=== PATIENT | female | born 1985 | race Caucasian/White ===

== ENCOUNTER → 2017-09-19 19:45 | Observation (INO) ==
[2017-09-19 18:34] LABS: Bilirubin,Urine Negative (Negative); Blood,Urine Negative (Negative); Clarity,Urine Cloudy (Clear); Color,Urine Yellow (Yellow); Glucose,Urine (UA) Normal (Normal); Ketones,Urine 15 mg/dL (Negative); Leukocyte Esterase,Urine Moderate (Negative); Nitrite,Urine Negative (Negative); Protein,Urine Negative (Neg-Trace); Specific Gravity,Urine 1.016 (1.010-1.025); Urobilinogen,Urine Normal (Normal)
[2017-09-19 18:37] LABS: Bacteria,Urine Few per hpf (None-Few); Hyaline Casts,Urine None Seen per lpf (None-Few); Squamous Epithelial Cell,Urine Many per lpf (None-Few); WBC,Urine 15-30 per hpf (0-3)
[2017-09-19 18:56] LABS: Mucus,Urine Few (Few); Sperm,Urine Present
--- NOTE | 2017-09-19 19:07 | OB/GYN Progress Note ---
Date of Encounter: 09/19/17 Time of Encounter: 19:13 - Assessment and Plan (1) Pain in symphysis pubis during Current Visit: Yes Status: Acute Reactive NST Occasonal contraction per monitor Urinalysis likely contaminated Discharge home with labor precautions and kick counts One time dose of Flexeril 5 mg po given Belly Band for abdominal support May use heat or cold for pain relief Follow up with Dr. Ruiz in morning for Physical Therapy consult (2) 34 weeks gestation of Current Visit: Yes Status: Acute Subjective - Subjective Principal diagnosis: Difficulty walking Interval history: at 34 weeks 4 days presents to triage per with reports difficulty walking and pelvic pain when ambulating. States has walked "at least 2 miles" today at school and has walked up several flights of stairs. Denies vaginal bleeding, leaking fluid and contractions. Denies dysuria and urinary frequency. States baby moving well. Objective - Vital Signs Vital Signs: Intake and Output 09/19/17 09/19/17 09/19/17 07:59 15:59 23:59 Other: Weight 85.8 kg Patient Weight 09/19/17 23:59 Weight 85.8 kg - Exam FHR: category 1 FHR comments: 140 Auscultation: bilateral: normal Abdomen: Present: soft, gravid Uterus: Present: normal Cervical dilation: fingertip Cervix effacement: thick station: -3 Comments: posterior and soft - Labs Labs: Abnormal lab results Urine Clarity Cloudy (Clear) A 09/19/17 18:10 Urine Ketones 15 mg/dL (Negative) H 09/19/17 18:10 Ur Leukocyte Esterase Moderate (Negative) H 09/19/17 18:10 Urine Microscopic WBC 15-30 per hpf (0-3) H 09/19/17 18:10 Ur Squamous Epith Cells Many per lpf (None-Few) H 09/19/17 18:10 Ur Culture Indicated? NO. (NO) A 09/19/17 18:10
== END | disposition home or self-care (01) ==
LOC: 1NENULAB
PROVIDERS: ADMIT Obstetrics & Gynecology; ATTEND Obstetrics & Gynecology

== ENCOUNTER 2017-10-11 05:51 | Inpatient (IN) ==
[2017-10-11] MEDS ORDERED: Naloxone 0.4 MG/ML INJ IVP PRN (05:55)
[2017-10-11] MEDS ORDERED: Famotidine 20 MG/2 ML VIAL IVP PRN (05:55)
[2017-10-11] MEDS ORDERED: Metoclopramide 10 MG/2 ML VIAL IVP PRN ×2 (05:55→11:33)
[2017-10-11] MEDS ORDERED: Ringers Solution, Lactated 1,000 ML IVC ONE (05:57)
[2017-10-11] MEDS ORDERED: Ringers Solution, Lactated 1,000 ML IVC SCH (06:00)
[2017-10-11 06:47] LABS: Basophils % 0.2 %; Eosinophils # 0.1 K/mcL (0.0-0.6); Eosinophils % 1.1 %; Hematocrit 29.6 % (35.3-44.9); Immature Granulocytes % 1.4 % (0-4); Lymphocytes # 1.8 K/mcL (0.6-4.6); Lymphocytes % 19.7 %; Mean Corpuscular HGB Conc 33.8 g/dL (31.6-35.5); Mean Corpuscular Hemoglobin 30.1 pg (28.0-33.3); Mean Corpuscular Volume 89.2 fL (83.0-100.0); Mean Platelet Volume 14.1 fL (9.4-12.4); Monocytes % 11.2 %; Neutrophils # 5.9 K/mcL (1.6-8.9); Platelet Count 84 K/mcL (140-400); Red Blood Count 3.32 M/mcL (3.82-4.97); Red Cell Distribution Width 13.4 % (11.5-14.5); Segmented Neutrophils % 66.4 %
[2017-10-11 06:57] LABS: Amphetamine Screen,Urine Negative ng/mL (Cutoff=1000); Barbiturate Screen,Urine Negative ng/mL (Cutoff=200); Benzodiazepines Screen,Urine Negative ng/mL (Cutoff=200); Cannabinoid Screen,Urine Negative ng/mL (Cutoff = 50); Cocaine Screen,Urine Negative ng/mL (Cutoff= 300); Opiate Screen,Urine Negative ng/mL (Cutoff=300); Phencyclidine Screen,Urine Negative ng/mL (Cutoff=25)
[2017-10-11] MEDS ORDERED: CeFAZolin Premix DUPLEX 2,000 MG/50 ML BAG IVPB ONE (07:22)
[2017-10-11] MEDS ORDERED: ROPIVACAINE HCL/PF 0.5% 30 ML VIAL ONE (07:31)
[2017-10-11] MEDS ORDERED: Tetracaine/PF 20 MG/2 ML AMPUL ONE (07:32)
[2017-10-11] MEDS ORDERED: Morphine Sulfate/PF 5mg/10mL Vial ONE (07:43)
[2017-10-11] MEDS ORDERED: *HR* FentaNYL (PF) 100 MCG/2 ML VIAL ONE (07:43)
[2017-10-11] MEDS ORDERED: EPHEDrine 50 MG/ML VIAL ONE (07:46)
[2017-10-11] MEDS ORDERED: MetroNIDAZOLE 500 MG/100 ML 500 MG/100 ML BAG IVPB ONE (07:47)
--- NOTE | 2017-10-11 07:51 | OB/GYN History & Physical ---
Date of Encounter: 10/11/17 Time of Encounter: 07:51 Assessment and Plan (1) 37 weeks gestation of Current visit: Yes Status: Acute Patient has multiple risk factors for which [facility] has recommended a repeat C- section at 37 weeks (2) Velamentous insertion of umbilical cord in third trimester Current visit: Yes Status: Acute (3) Liver and biliary tract disorders in , third trimester Current visit: Yes Status: Acute (4) Gestational thrombocytopenia without hemorrhage in third trimester Current visit: Yes Status: Acute Repeat CBC /postop (5) History of 2 sections Current visit: Yes Status: Acute Repeat today per [facility] recommendations (6) Tobacco use disorder affecting in third trimester, antepartum Current visit: Yes Status: Chronic Smoking cessation information has been given (7) Tobacco use disorder affecting in third trimester, antepartum Current visit: Yes Status: Acute (8) Vaginal discharge during in third trimester Current visit: Yes Status: Acute Vaginosis panel obtained preop History of Present Illness Chief complaint: RPT C/S HPI: Ms. Gonzalez is a 32 year old female 37w5d to L+D for a rpt c/s. She is having it performed at 37 weeks per [facility] recommendations due to elevated bile salts and a marginal cord insertion. Both of these have increased risk for poor outcome. Her labs are blood type A positive, she is rubella immune, varicella immune and her GBS is negative. She has been smoking during , has been using tobacco despite counseling and has a velamentous cord insertion. She has been receiving twice weekly NSTs. She is requesting a repeat . Originally she desired a tubal ligation but did not sign consent soon enough to have this accomplished at this earlier gestation. She has had all of her itching despite using Vistaril and Urisidol. The patient is also reporting an irritating vaginal discharge was started yesterday. Past Med Surg Social Fam HX - Past Medical History Source: patient, old records reviewed Medical history: no medical history Psychiatric history: depression - Past Surgical History Surgical History: appendectomy, , cholecystectomy, other (Breast augmentation and diagnostic laparoscopy) - Social History Smoking Status: Current every day smoker Smokeless Tobacco Status: No Alcohol use: none Drug use: none - Family History Mother Living Status: Still Living Hx Family Cardiac Disorders: No Hx Family Respiratory Disorders: No Hx Family Cancer: No Hx Family GI Disorders: No Hx Family Genitourinary Disorders: No Hx Family Endocrine Disorder: No Hx Family Musculoskeletal Disorders: No Hx Family Neuromuscular Disorders: No Hx Family Neurologic Disorders: No Hx Family HEENT Disorders: No Hx Family Autoimmune Disorders: No Hx Family Reproductive Disorders: No Hx Family Psychosocial Disorders: No Hx Family Medical Disorders: No Obstetrical History - Pregnancies : 3 Term: 2 Livin Medications and Allergies Ferrous Sulfate 325 mg PO DAILY 09/19/17 [History] HydrOXYzine Pamoate [Vistaril] 50 mg PO Q6HR PRN 09/19/17 [History] Vit #108/Iron/FA [ One Tablet] 1 each PO DAILY 09/19/17 [ History] Ursodiol 300 mg PO TID 09/19/17 [History] 3 Allergy/AdvReac Type Severity Reaction Status Date / Time No Known Allergies Allergy Verified 09/19/17 17:25 Review of System OB All systems PM: reviewed and no additional remarkable complaints except as stated - Constitutional Constitutional ROS IM: fatigue, weight gain - Genitourinary Genitourinary: vaginal discharge (Vaginosis panel obtained today) - Integumentary Integumentary: other (itching) Exam - Vital Signs Vital signs: Initial Vital Signs Temp Pulse Resp BP 98.3 F 64 15 131/81 10/11/17 06:12 10/11/17 06:12 10/11/17 06:12 10/11/17 06:12 - Constitutional Constitutional: well developed, well nourished, no acute distress, average body habitus, other (Gravid) - HEENT HEENT: Normocephaly, Mucus Membranes Moist - Neck Neck exam: normal inspection, supple - Lungs Respiratory exam: CTAB - Cardiovascular Cardiovascular exam: RRR - Breasts Breast: bilateral: normal (Gravid) - Abdomen Abdomen: Present: bowel sounds normal, gravid, non tender - Extremities Extremities exam: normal inspection, warm Deep Tendon Reflex Grade: 3+ Normal But Brisk - Vulva Vulva: bilateral: normal - Vagina Vagina: Present: normal moisture (Vaginosis panel obtained) - Anus/Rectum Anus/Rectum: Present: normal perianal skin Results Result Diagrams: 10/11/17 06:30 Abnormal lab results RBC 3.32 M/mcL (3.82-4.97) L 10/11/17 06:30 Hgb 10.0 g/dL (11.5-15.4) L 10/11/17 06:30 Hct 29.6 % (35.3-44.9) L 10/11/17 06:30 Plt Count 84 K/mcL (140-400) L 10/11/17 06:30 MPV 14.1 fL (9.4-12.4) H 10/11/17 06:30 All other labs normal. - VTE Documentation of Mechanical Device: Intermittent pneumatic compression device
[2017-10-11] MEDS ORDERED: *HR* Oxytocin 10 UNIT/ML VIAL IM ONE (08:32)
[2017-10-11] MEDS ORDERED: Ringers Solution, Lactated 1,000 ML ONE (08:33)
--- NOTE | 2017-10-11 08:57 | Anesthesia Evaluation PreOp ---
Date of Encounter: 10/11/17 Time of Encounter: 07:32 - Past History Planned Operation: repeat X3 Cardiac History: Denies any Significant Hx Pulmonary History: Denies Any Significant HX CASHIER CREDIT History: Denies Any Significant HX Other Medical History: Other (anemia and induced cholestasis, with normal LFT's, reports no easy brusing or gums bleeding with brushing teeth) Anesthesia History: No Prior Anesthetic Complications, Past Anesthesia Alcohol Use: none Drug use: none Medications and Allergies Ferrous Sulfate 325 mg PO DAILY 09/19/17 [History] HydrOXYzine Pamoate [Vistaril] 50 mg PO Q6HR PRN 09/19/17 [History] Vit #108/Iron/FA [ One Tablet] 1 each PO DAILY 09/19/17 [ History] Ursodiol 300 mg PO TID 09/19/17 [History] 3 Allergy/AdvReac Type Severity Reaction Status Date / Time No Known Allergies Allergy Verified 09/19/17 17:25 Anesthesia Results - Labs 10/11/17 06:30 Anesthesia Exam - HEENT Pupil (Motor): Pupils equal Mallampati: I Teeth: Normal Oral Opening: Greater than 3 - CASHIER CREDIT LOC: Oriented CASHIER CREDIT Motor: Normal RUE, Normal LUE, Normal RLE, Normal LLE, Normal Face CASHIER CREDIT Sensory: Normal: RUE, LUE, RLE, LLE, Face - Cardiac Rhythm: Regular Murmur: None - Pulmonary Breath Sounds: bilateral Clear Respiratory Effort: Symmetrical Anesthesia Assess/Plan ASA Score: 2 Modified Joe Scale for Level of Consciousness: Cooperative, oriented, and tranquil Anesthetic Plan: General, Regional (extensive conversation concerning regional vs general.) Monitoring Plan: Standard Monitors Recovery Plan: PACU
[2017-10-11] MEDS ORDERED: *HR* HYDROmorphone (PF) 1 MG/ML SYRINGE IVP PRN (09:00)
[2017-10-11] MEDS ORDERED: *HR* Promethazine 25 MG/ML VIAL IVP PRN (09:00)
[2017-10-11] MEDS ORDERED: *HR* OxyCODONE Immed Rel 5 MG TABLET PO PRN (09:00)
[2017-10-11 09:21] LABS: Candida DNA Not Detected (Not Detect); Gardnerella DNA Not Detected (Not Detect); Trichomonas DNA Not Detected (Not Detect)
--- NOTE | 2017-10-11 09:28 | OB/GYN Procedure Note ---
Section - Date of procedure: 10/11/17 Preop diagnosis: desires repeat , other (Anemia, Gestational thrombocytopenia, Elevated bile salts and velamentous cord insertion) Post-op diagnosis: same Procedure: section, repeat low transverse Surgeon: Shelly Coelho Blood Loss: 400 Was there an mri assistant present: No Anesthesiologist: Rico Hooker Rug Setter [place]: Ricki Bran Anesthesia Type: Spinal section complications: none Disposition: L&D Recovery Room Specimens: Placenta, Cord segment - Infant (s) A Infant Delivery Date: 10/11/17 Infant Delivery Time: 08:30 Presentation: vertex Position: RAUL Route of delivery: other (The patient was taken to the operating room and given spinal anesthesia adequate for abdominal and pelvic surgery. The was prepped and draped in the usual sterile fashion. Timeout was completed. A Pfannenstiel skin incision was made through the previous scar. The subcutaneous tissue was sharply dissected down to the fascia. The fascia was incised in the midline and extended bilaterally with Carpio scissors.. 2 straight [place] clamps were placed on the inferior fascial edge and the fascia was bluntly and sharply dissected away from the rectus muscles. This was repeated superiorly. Peritoneum was bluntly entered. There were omental and uterine adhesions anteriorly which was lysed with a Bovie and hemostasis confirmed. Bladder blade was placed to protect the bladder. Vesicouterine peritoneum was incised and reflected inferiorly, and the bladder blade was replaced to protect the bladder. A transverse incision was then made on the uterus which is extended in a U fashion with bandage scissors. The amnion was bluntly entered with an Allis clamp. Clear fluid was seen. This was followed by the vertex delivery of a viable and vigorous male infant weighing 7#10 oz with Apgars of 8 at 1 minute and 9 at 5 minutes. Infant was placed on the maternal abdomen. The cord was clamped and cut after a delay. was handed to the nursery care team. The placenta was delivered spontaneous and intact. The uterine cavity was digitally palpated and wiped clean with a moist lap sponge. There were no placental remnants identified. A ring forcep was used to make sure the cervix was dilated and then this was discarded off the field. Clamps were placed on the uterine angles and the uterine incision was closed using 0 Vicryl suture in a running, locking fashion. Gloves were changed. A second imbricating layer completed the uterine closure with 0 Vicryl suture. The uterus was then examined and noted to be hemostatic. The pelvis was then irrigated with a copious amount of sterile water. Again, good hemostasis was identified. Tubes and ovaries were inspected and noted to be grossly normal. The peritoneal edges and rectus muscles were then examined and hemostasis achieved. The fascia was then closed using 0 PDS loop in a running, nonlocking fashion. Subcutaneous tissue was irrigated with sterile water, good hemostasis was achieved. The skin was then closed using a 4-0 Monocryl in a running subcuticular fashion. A dressing was placed. Estimated blood loss was 400cc. The Minor was noted to be draining clear yellow urine at the end of the procedure. All sponge and instrument counts are correct at the end of the procedure. The patient was taken to the recovery room in stable condition.) Gender: Male Viability: Viable Pounds: 8 Ounces: 5 Gram Weight: 3.77 kg at 1 minute: 8 at 5 minutes: 9 Placenta: uterine exploration, complete extraction Cord: nuchal cord (x2), 3 umbilical vessels, other (Velamentous cord insertion) , nuchal reduced - Narrative Narrative: The patient was taken to the operating room and given spinal anesthesia adequate for abdominal and pelvic surgery. The was prepped and draped in the usual sterile fashion. Timeout was completed. A Pfannenstiel skin incision was made through the previous scar. The subcutaneous tissue was sharply dissected down to the fascia. The fascia was incised in the midline and extended bilaterally with Carpio scissors.. 2 straight Nur[place] clamps were placed on the inferior fascial edge and the fascia was bluntly and sharply dissected away from the rectus muscles. This was repeated superiorly. Peritoneum was bluntly entered. There were omental and uterine adhesions anteriorly which was lysed with a Bovie and hemostasis confirmed. Bladder blade was placed to protect the bladder. Vesicouterine peritoneum was incised and reflected inferiorly, and the bladder blade was replaced to protect the bladder. A transverse incision was then made on the uterus which is extended in a U fashion with bandage scissors. There was prominent vascularity running through the amnion. The amnion was bluntly entered with an Allis clamp. Clear fluid was seen. This was followed by the vertex delivery of a viable and vigorous male weighing 8#4 oz with Apgars of 8 at 1 minute and 9 at 5 minutes. was placed on the maternal abdomen. The cord was clamped and cut after a delay. was handed to the nursery care team. The placenta was delivered manually intact, with the cord insertion over 10 cm from the edge of the placenta. The uterine cavity was digitally palpated and wiped clean with a moist lap sponge. There were no placental remnants identified. A ring forcep was used to make sure the cervix was dilated and then this was discarded off the field. Clamps were placed on the uterine angles and the uterine incision was closed using 0 Vicryl suture in a running, locking fashion. Gloves were changed. A second imbricating layer completed the uterine closure with 0 Vicryl suture. The uterus was then examined and hemostasis achieved with a [id number] using 0 Vicryl in the midline of the incision. The pelvis was then irrigated with a copious amount of sterile water. Good hemostasis was identified. Tubes and ovaries were inspected and noted to be grossly normal. The peritoneal edges and rectus muscles were then examined and hemostasis achieved. The fascia was then closed using 0 PDS loop in a running, nonlocking fashion. Subcutaneous tissue was irrigated with sterile water, good hemostasis was achieved. The skin was then closed using a 4-0 Monocryl in a running subcuticular fashion. A dressing was placed. Estimated blood loss was 400cc. The Minor was noted to be draining clear yellow urine at the end of the procedure. All sponge and instrument counts are correct at the end of the procedure. The patient was taken to the recovery room in stable condition.
--- NOTE | 2017-10-11 11:05 | Anesthesia Evaluation Post Op ---
Date of Encounter: 10/11/17 Time of Encounter: 11:04 - Vital Signs Vital Signs: vss - Lungs Lungs: Clear Ascult./Percussion - Airway Airway: Non-obstructed - Mental Status Mental Status: Alert & Oriented, Answers Appropriately - Pain Pain Scale used: [place] (Faces) - Nausea Vomiting Nausea Vomiting: Not Present - Hydration Hydration: Ice chips, Minor catheter - Discharge PostOp Status: Transfer Patient to floor
[2017-10-11] MEDS ORDERED: Ondansetron 4 MG/2 ML VIAL IVP PRN (11:33)
[2017-10-11] MEDS ORDERED: OXYCODONE Oral CONC 10 MG/0.5 ML ORAL.SYG SL PRN (11:33)
[2017-10-11] MEDS ORDERED: Simethicone 80 MG TAB.CHEW PO PRN (11:33)
[2017-10-11] MEDS ORDERED: Oxytocin 20 units/ LR 1000 mL 20 UNIT/1,000 ML BAG IVC SCH (11:33)
[2017-10-11] MEDS ORDERED: hydrOXYzine pamoate 25 MG CAPSULE PO PRN (11:33)
[2017-10-11] MEDS ORDERED: Sennosides 8.6 MG TABLET PO PRN (11:33)
[2017-10-11] MEDS: *HR* OxyCODONE/APAP 5/325 TABLET PO PRN ×2 (11:44→21:47)
[2017-10-11] MEDS ORDERED: *HR* Nalbuphine 10 MG/ML AMPUL IV PRN (13:31)
[2017-10-11] MEDS ORDERED: *HR* Nalbuphine 20 MG/ML AMPUL ONE (13:47)
[2017-10-11] MEDS: Ibuprofen 600 MG TABLET PO SCH (13:52)
[2017-10-12] MEDS: Ibuprofen 600 MG TABLET PO SCH ×4 (00:41→21:00)
[2017-10-12] MEDS: *HR* OxyCODONE/APAP 5/325 TABLET PO PRN ×4 (04:59→18:28)
[2017-10-12] MEDS: Azithromycin 250 MG TABLET PO SCH (08:31)
[2017-10-12] MEDS: Prenatal Vit/FA 1 EACH TABLET PO SCH (08:32)
[2017-10-12 14:44] LABS: Mean Corpuscular Volume 88.6 fL (83.0-100.0)
[2017-10-12 14:46] LABS: Basophils % 0.1 %; Eosinophils # 0.1 K/mcL (0.0-0.6); Eosinophils % 0.9 %; Hematocrit 27.3 % (35.3-44.9); Immature Platelets 19.8 % (1.1-6.1); Lymphocytes # 1.5 K/mcL (0.6-4.6); Mean Corpuscular Hemoglobin 29.2 pg (28.0-33.3); Mean Platelet Volume 13.9 fL (9.4-12.4); Monocytes # 0.6 K/mcL (0.0-1.3); Monocytes % 8.6 %; Neutrophils # 4.5 K/mcL (1.6-8.9); Red Blood Count 3.08 M/mcL (3.82-4.97); Red Cell Distribution Width 13.6 % (11.5-14.5); Segmented Neutrophils % 67.4 %
[2017-10-12 14:47] LABS: Platelet Count 94 K/mcL (140-400)
[2017-10-12 15:00] LABS: Alanine Aminotransferase 57 Units/L (7-52); Aspartate Amino Transferase 136 Units/L (13-39); BUN/Creatinine Ratio 18 (6-26); Blood Urea Nitrogen 14 mg/dL (6-20); Lactate Dehydrogenase 306 Units/L (140-271); Uric Acid 8.1 mg/dL (2.3-7.6); eGFR For African Americans > 60 (> 60); eGFR For Non-African Americans > 60 (> 60)
--- NOTE | 2017-10-12 16:02 | OB/GYN Progress Note ---
Date of Encounter: 10/12/17 Time of Encounter: 16:00 - Assessment and Plan (1) delivery delivered Current Visit: Yes Status: Acute Pt meeting post-op milestones. Anticipate discharge POD#2-3 (2) Gestational thrombocytopenia without hemorrhage in third trimester Current Visit: Yes Status: Acute (3) Liver and biliary tract disorders in , third trimester Current Visit: Yes Status: Acute Subjective - Subjective Interval history: Pt reports some incisional pain L>R. She also reports significant continued itching all over and some tightness in her calves bilaterally. No swelling or redness in LE. No other complaints. Patient reports: appetite normal, voiding normally, pain well controlled, ambulating normally [place]: doing well Objective - Vital Signs Latest vital signs: Vital Signs Temp Pulse Pulse Resp BP Pulse Ox 10/12/17 03:09 63 14 10/12/17 00:15 98.1 F 68 68 15 124/76 96 10/11/17 23:25 98.2 F 68 14 121/75 94 10/11/17 19:35 98.2 F 73 16 123/79 97 Intake and Output 10/12/17 10/12/17 10/12/17 07:59 15:59 23:59 Intake Total 1575 / 1575 360 / 360 Output Total 2400 / 2400 2049 Balance -825 / -825 -1690 / -1690 Intake: Oral 1100 / 1100 360 / 360 Other 475 / 475 Output: Urine 1800 / 1800 2049 Catheter 600 / 600 Other: Weight 86.183 kg Patient Weight 10/12/17 23:59 Weight 86.183 kg - Exam Lungs: bilateral: normal Chest: Normal S1, Normal S2 Extremities: Present: normal, tenderness (bilaterally). Absent: edema Abdomen: Present: soft Incision: Present: dressed (dressing dry and intact) Uterus: Present: firm - Labs Labs: Laboratory Results - last 24 hr 10/12/17 10/12/17 13:52 13:52 WBC 6.7 RBC 3.08 L Hgb 9.0 L Hct 27.3 L MCV 88.6 MCH 29.2 MCHC 33.0 RDW 13.6 Plt Count 94 L MPV 13.9 H Immature Gran % 1.0 Seg Neutrophils % 67.4 Lymphocytes % 22.0 Monocytes % 8.6 Eosinophils % 0.9 Basophils % 0.1 Neutrophils # 4.5 Lymphocytes # 1.5 Monocytes # 0.6 Eosinophils # 0.1 Basophils # 0.0 Immature Plt Fraction 19.8 H BUN 14 Creatinine 0.78 Est GFR ( Amer) > 60 Est GFR (Non-Af Amer) > 60 BUN/Creatinine Ratio 18 Uric Acid 8.1 H AST 136 H ALT 57 H Lactate Dehydrogenase 306 H
[2017-10-12] MEDS ORDERED: Lanolin 7 G OINT...G. TP PRN (20:54)
[2017-10-13] MEDS: *HR* OxyCODONE/APAP 5/325 TABLET PO PRN ×5 (00:04→18:02)
[2017-10-13] MEDS: Ibuprofen 600 MG TABLET PO SCH ×3 (03:30→15:44)
[2017-10-13 09:26] VITALS: BP 122/81
[2017-10-13] MEDS: Azithromycin 250 MG TABLET PO SCH (09:28)
[2017-10-13] MEDS: Prenatal Vit/FA 1 EACH TABLET PO SCH (09:29)
[2017-10-13 11:43] LABS: Alanine Aminotransferase 70 Units/L (7-52); Albumin 3.3 g/dL (3.5-5.7); Alkaline Phosphatase 108 Units/L (34-104); Aspartate Amino Transferase 157 Units/L (13-39); BUN/Creatinine Ratio 18 (6-26); Bilirubin,Total 0.1 mg/dL (0.3-1.0); Blood Urea Nitrogen 14 mg/dL (6-20); Calcium 8.8 mg/dL (8.6-10.3); Carbon Dioxide 23 mEq/L (23-29); Chloride 104 mEq/L (98-107); Globulin 3.4 g/dL (2.4-3.5); Glucose 89 mg/dL (70-105); Osmolality,Calculated 276 (280-300); Potassium 3.9 mEq/L (3.5-5.1); Sodium 133 mEq/L (136-145); Total Protein 6.7 g/dL (6.4-8.9); eGFR For African Americans > 60 (> 60); eGFR For Non-African Americans > 60 (> 60)
[2017-10-13 12:15] LABS: Basophils % 0.1 %; Eosinophils # 0.1 K/mcL (0.0-0.6); Eosinophils % 1.7 %; Hematocrit 27.6 % (35.3-44.9); Hemoglobin 9.3 g/dL (11.5-15.4); Lymphocytes # 1.4 K/mcL (0.6-4.6); Lymphocytes % 20.4 %; Mean Corpuscular HGB Conc 33.7 g/dL (31.6-35.5); Mean Corpuscular Hemoglobin 30.1 pg (28.0-33.3); Mean Corpuscular Volume 89.3 fL (83.0-100.0); Mean Platelet Volume 13.1 fL (9.4-12.4); Monocytes # 0.7 K/mcL (0.0-1.3); Monocytes % 9.5 %; Neutrophils # 4.8 K/mcL (1.6-8.9); Nucleated Red Blood Cells 0.3 /100 WBC (0); Platelet Count 104 K/mcL (140-400); Red Blood Count 3.09 M/mcL (3.82-4.97); Red Cell Distribution Width 13.6 % (11.5-14.5); Segmented Neutrophils % 67.3 %
[2017-10-13 19:17] LABS: Uric Acid 8.1 mg/dL (2.3-7.6)
--- NOTE | 2017-10-13 19:22 | Discharge Summary ---
Date of Encounter: 10/13/17 Time of Encounter: 19:19 - Discharge Diagnosis (1) Elevated liver enzymes Priority: Primary Status: Acute Comments: Pt continued to have rising liver enzymes today. Ordered GI consult. Pt states she is unable to stay in hospital for lab follow up and GI consult. Pt signing out AMA, so she can attend [employer] graduation tomorrow. Discussed with patient we do not know the cause of her liver enzymes and she risks further deterioration of health, liver failure and . Pt states she understands and has signed AMA papers. Pt to be seen in office on Tuesday and have follow up labs drawn. Pt states she may cancel appointment and just follow up with her own PCP. Discussed with patient it is her choice who follows up but I strongly recommend close follow up. (2) delivery delivered Priority: Primary Status: Acute Comments: POD#2, meeting PP milestones, bleeding minimal, pain well managed, tolerates po diet. (3) Gestational thrombocytopenia without hemorrhage in third trimester Priority: Primary Status: Acute (4) Liver and biliary tract disorders in , third trimester Priority: Primary Status: Acute - Discharge Medications Prescriptions: OxyCODONE/APAP 5/325 [Percocet 5/325 MG] 1 each PO Q4HR PRN 7 Days #20 tablet PRN Reason: Moderate pain 4-6 Ibuprofen [Motrin] 600 mg PO Q6HR #60 tablet Docusate [Colace] 100 mg PO BID #60 capsule Home Medications: Vit #108/Iron/FA [ One Tablet] 1 each PO DAILY 09/19/17 [ History] Calcium Carbonate [Tums] 1,000 mg PO Q4HR PRN tab.chew 10/13/17 [Rx] Docusate [Colace] 100 mg PO BID #60 capsule 10/13/17 [Rx] Ferrous Sulfate 325 mg PO BIDWM tablet 10/13/17 [Rx] Hydrocortisone 1% CREAM [Cortaid] 1 appl TP BID PRN bottle 10/13/17 [Rx] Ibuprofen [Motrin] 600 mg PO Q6HR #60 tablet 10/13/17 [Rx] Lanolin [Lansinoh] 1 appl TP TID PRN oint...g. 10/13/17 [Rx] OxyCODONE/APAP 5/325 [Percocet 5/325 MG] 1 each PO Q4HR PRN 7 Days #20 tablet [Rx] Vit/FA 1 each PO DAILY tablet 10/13/17 [Rx] Simethicone [Gas-X] 80 mg PO TID PRN tab.chew 10/13/17 [Rx] Allergies/Adverse Reactions: 3 Allergy/AdvReac Type Severity Reaction Status Date / Time No Known Allergies Allergy Verified 09/19/17 17:25 Data Procedures and tests throughout hospitalization: Laboratory Tests 10/11/17 10/11/17 10/11/17 06:30 06:30 07:45 WBC 8.9 RBC 3.32 L Hgb 10.0 L Hct 29.6 L MCV 89.2 MCH 30.1 MCHC 33.8 RDW 13.4 Plt Count 84 L MPV 14.1 H Immature Gran % 1.4 Seg Neutrophils % 66.4 Lymphocytes % 19.7 Monocytes % 11.2 Eosinophils % 1.1 Basophils % 0.2 Neutrophils # 5.9 Lymphocytes # 1.8 Monocytes # 1.0 Eosinophils # 0.1 Basophils # 0.0 Nucleated RBCs/100 WBC Immature Plt Fraction Sodium Potassium Chloride Carbon Dioxide BUN Creatinine Est GFR ( Amer) Est GFR (Non-Af Amer) BUN/Creatinine Ratio Glucose Calculated Osmolality Uric Acid Calcium Total Bilirubin AST ALT Alkaline Phosphatase Lactate Dehydrogenase Serum Total Protein Albumin Globulin Albumin/Globulin Ratio Urine Opiates Screen Negative Ur Barbiturates Screen Negative Ur Phencyclidine Scrn Negative Ur Amphetamines Screen Negative U Benzodiazepines Scrn Negative Urine Cocaine Screen Negative U Marijuana (THC) Screen Negative Bridgette species DNA Not Detected Gardnerella DNA Probe Not Detected Trichomonas DNA Probe Not Detected 10/12/17 10/12/17 10/13/17 13:52 13:52 08:43 WBC 6.7 RBC 3.08 L Hgb 9.0 L Hct 27.3 L MCV 88.6 MCH 29.2 MCHC 33.0 RDW 13.6 Plt Count 94 L MPV 13.9 H Immature Gran % 1.0 Seg Neutrophils % 67.4 Lymphocytes % 22.0 Monocytes % 8.6 Eosinophils % 0.9 Basophils % 0.1 Neutrophils # 4.5 Lymphocytes # 1.5 Monocytes # 0.6 Eosinophils # 0.1 Basophils # 0.0 Nucleated RBCs/100 WBC Immature Plt Fraction 19.8 H Sodium 133 L Potassium 3.9 Chloride 104 Carbon Dioxide 23 BUN 14 14 Creatinine 0.78 0.80 Est GFR ( Amer) > 60 > 60 Est GFR (Non-Af Amer) > 60 > 60 BUN/Creatinine Ratio 18 18 Glucose 89 Calculated Osmolality 276 L Uric Acid 8.1 H 8.1 H Calcium 8.8 Total Bilirubin 0.1 L AST 136 H 157 H ALT 57 H 70 H Alkaline Phosphatase 108 H Lactate Dehydrogenase 306 H Serum Total Protein 6.7 Albumin 3.3 L Globulin 3.4 Albumin/Globulin Ratio 1.0 L Urine Opiates Screen Ur Barbiturates Screen Ur Phencyclidine Scrn Ur Amphetamines Screen U Benzodiazepines Scrn Urine Cocaine Screen U Marijuana (THC) Screen Bridgette species DNA Gardnerella DNA Probe Trichomonas DNA Probe 10/13/17 09:11 WBC 7.1 RBC 3.09 L Hgb 9.3 L Hct 27.6 L MCV 89.3 MCH 30.1 MCHC 33.7 RDW 13.6 Plt Count 104 L MPV 13.1 H Immature Gran % 1.0 Seg Neutrophils % 67.3 Lymphocytes % 20.4 Monocytes % 9.5 Eosinophils % 1.7 Basophils % 0.1 Neutrophils # 4.8 Lymphocytes # 1.4 Monocytes # 0.7 Eosinophils # 0.1 Basophils # 0.0 Nucleated RBCs/100 WBC 0.3 H Immature Plt Fraction Sodium Potassium Chloride Carbon Dioxide BUN Creatinine Est GFR ( Amer) Est GFR (Non-Af Amer) BUN/Creatinine Ratio Glucose Calculated Osmolality Uric Acid Calcium Total Bilirubin AST ALT Alkaline Phosphatase Lactate Dehydrogenase Serum Total Protein Albumin Globulin Albumin/Globulin Ratio Urine Opiates Screen Ur Barbiturates Screen Ur Phencyclidine Scrn Ur Amphetamines Screen U Benzodiazepines Scrn Urine Cocaine Screen U Marijuana (THC) Screen Bridgette species DNA Gardnerella DNA Probe Trichomonas DNA Probe Labs on day of discharge: Labs from last 24 hours 10/13/17 10/13/17 09:11 08:43 WBC 7.1 RBC 3.09 L Hgb 9.3 L Hct 27.6 L MCV 89.3 MCH 30.1 MCHC 33.7 RDW 13.6 Plt Count 104 L MPV 13.1 H Immature Gran % 1.0 Seg Neutrophils % 67.3 Lymphocytes % 20.4 Monocytes % 9.5 Eosinophils % 1.7 Basophils % 0.1 Neutrophils # 4.8 Lymphocytes # 1.4 Monocytes # 0.7 Eosinophils # 0.1 Basophils # 0.0 Nucleated RBCs/100 WBC 0.3 H Sodium 133 L Potassium 3.9 Chloride 104 Carbon Dioxide 23 BUN 14 Creatinine 0.80 Est GFR ( Amer) > 60 Est GFR (Non-Af Amer) > 60 BUN/Creatinine Ratio 18 Glucose 89 Calculated Osmolality 276 L Uric Acid 8.1 H Calcium 8.8 Total Bilirubin 0.1 L AST 157 H ALT 70 H Alkaline Phosphatase 108 H Serum Total Protein 6.7 Albumin 3.3 L Globulin 3.4 Albumin/Globulin Ratio 1.0 L Date of admission: 10/11/17 05:51 Primary care physician: Tanya Del Rio Consults: 10/13/17 14:12 Consult to Gastroenterology [CONS] Routine Consulting Provider: [facility] Reason for Consult: elevated liver enzymes Time Notified: 14:16 Call Completed: Yes Discharging clinician: Bing Mcclendon Anticipated date of discharge: 10/13/17 - Patient Status Disposition: Left Against Medical Advice Condition: Good Functional capacity at discharge: independent ambulation Overall status at discharge: patient is not back to baseline - Discharge Instructions Follow Up With: Tanya Del Rio [Primary Care Provider] - Shelly Ruiz MD [Partnered Physician] - - Diet and Activity Activity: resume usual activities as tolerated Diet: regular diet Hospital Course Reason for admission: section Delivery: section Episiotomy: none Laceration: none Other procedures: none complications: other (elevating liver enzymes) Discharge diagnosis: IUP at term delivered baby: male Hospital course: Section - Date of procedure: 10/11/17 Preop diagnosis: desires repeat , other (Anemia, Gestational thrombocytopenia, Elevated bile salts and velamentous cord insertion) Post-op diagnosis: same Procedure: section, repeat low transverse Surgeon: Shelly Ruiz Quantitated Blood Loss: 400 Was there an molding line assistant present: No Anesthesiologist: Rico Hooker Testing Director: Ricki Bran Anesthesia Type: Spinal section complications: none Disposition: L&D Recovery Room Specimens: Placenta, Cord segment - (s) Infant A Delivery Date: 10/11/17 Infant Delivery Time: 08:30 Presentation: vertex Position: RAUL Route of delivery: other (The patient was taken to the operating room and given spinal anesthesia adequate for abdominal and pelvic surgery. The was prepped and draped in the usual sterile fashion. Timeout was completed. A Pfannenstiel skin incision was made through the previous scar. The subcutaneous tissue was sharply dissected down to the fascia. The fascia was incised in the midline and extended bilaterally with Carpio scissors.. 2 straight [place] clamps were placed on the inferior fascial edge and the fascia was bluntly and sharply dissected away from the rectus muscles. This was repeated superiorly. Peritoneum was bluntly entered. There were omental and uterine adhesions anteriorly which was lysed with a Bovie and hemostasis confirmed. Bladder blade was placed to protect the bladder. Vesicouterine peritoneum was incised and reflected inferiorly, and the bladder blade was replaced to protect the bladder. A transverse incision was then made on the uterus which is extended in a U fashion with bandage scissors. The amnion was bluntly entered with an Allis clamp. Clear fluid was seen. This was followed by the vertex delivery of a viable and vigorous male weighing 7#10 oz with Apgars of 8 at 1 minute and 9 at 5 minutes. was placed on the maternal abdomen. The cord was clamped and cut after a delay. was handed to the nursery care team. The placenta was delivered spontaneous and intact. The uterine cavity was digitally palpated and wiped clean with a moist lap sponge. There were no placental remnants identified. A ring forcep was used to make sure the cervix was dilated and then this was discarded off the field. Clamps were placed on the uterine angles and the uterine incision was closed using 0 Vicryl suture in a running, locking fashion. Gloves were changed. A second imbricating layer completed the uterine closure with 0 Vicryl suture. The uterus was then examined and noted to be hemostatic. The pelvis was then irrigated with a copious amount of sterile water. Again, good hemostasis was identified. Tubes and ovaries were inspected and noted to be grossly normal. The peritoneal edges and rectus muscles were then examined and hemostasis achieved. The fascia was then closed using 0 PDS loop in a running, nonlocking fashion. Subcutaneous tissue was irrigated with sterile water, good hemostasis was achieved. The skin was then closed using a 4-0 Monocryl in a running subcuticular fashion. A dressing was placed. Estimated blood loss was 400cc. The Minor was noted to be draining clear yellow urine at the end of the procedure. All sponge and instrument counts are correct at the end of the procedure. The patient was taken to the recovery room in stable condition.) Gender: Male Viability: Viable Pounds: 8 Ounces: 5 Gram Weight: 3.77 kg at 1 minute: 8 at 5 minutes: 9 Placenta: uterine exploration, complete extraction Cord: nuchal cord (x2), 3 umbilical vessels, other (Velamentous cord insertion) , nuchal reduced Stable in PP, but has rising liver enzymes and we ordered GI consult. Pt states she does not want to stay inpatient because she would miss her child's kindergarten graduation. Discussed risks of leaving without further lab work and evaluation. Patient left AMA, Time Attestation: Total time spent providing and/or coordinating discharge services: Time Spent: Greater than 30 minutes - VTE Documentation of Mechanical Device: Intermittent pneumatic compression device Exam - Constitutional Vitals: Temp Pulse Resp BP Pulse Ox 97.6 F 77 16 122/81 96 10/13/17 09:25 10/13/17 09:25 10/13/17 09:25 10/13/17 09:25 10/12/17 00:15 General appearance IM: A&O X 3 - Respiratory Respiratory exam: Present: CTAB - Cardiovascular Cardiovascular exam IM: Present: RRR - GI/Abdominal GI/Abdominal exam IM: normal bowel sounds, soft Incision: intact - Uterine Tone: Firm Uterus Position: 1 Finger Below Umbilicus Additional comments: slight edema noted to mons. - Extremities Exam Extremities exam IM: Present: normal capillary refill, normal inspection - Neurological Exam Neurological exam: normal gait, oriented X3 - Psychiatric Additional comments: Mood is good and appropriate
[2017-10-13 21:52] LABS: Hepatitis B Surface Antigen Nonreactive (Nonreactive)
[2017-10-14 02:34] LABS: Hepatitis A Antibody IgM Nonreactive (Nonreactive); Hepatitis B Core IgM Nonreactive (Nonreactive)
[2017-10-14 02:41] LABS: Hepatitis C Virus Antibody Reactive (Nonreactive)
[2017-10-17 10:06] LABS: HCV Quant Interpretation DETECTED (Not Detected)
[2017-10-21 13:46] LABS: HCV Genotype by Sequencing 1A OR 1B
== END 2017-10-13 20:38 | disposition left against medical advice (07) | DRG 540 ==
LOC: 1NENULAB 05:51 → 1NENUOBS 11:42
PROVIDERS: ADMIT Obstetrics & Gynecology; ATTEND Obstetrics & Gynecology